=== PATIENT | female | born 1950 ===

== ENCOUNTER 2016-05-26 06:02 | Inpatient (IN) | payer MEDICARE ==
[2016-05-26] VITALS (12 sets, daily range): BP systolic 101–140; BP diastolic 45–83
[~2016-05-26] VITALS: Ht 142.2 cm; Wt 69.9 kg
[~2016-05-26 06:02] MED LIST: OMEPRAZOLE20 M2 ORAL; SIMVASTATIN20 MG ORAL
--- NOTE | 2016-05-26 06:31 | Pre-Procedure Note/Attestation ---
Pre-Procedure Note/Attestation Complete Prior to Procedure Planned Procedure: right Procedure Narrative: Right knee arthroplasty Indications for Procedure Pre-Operative Diagnosis: Right knee arthritis Attestation I attest that I discussed the nature of the procedure; its benefits; risks and complications; and alternatives (and the risks and benefits of such alternatives ), prior to the procedure, with the patient (or the patient's legal lead customer service representative). I attest that, if there was a reasonable possibility of needing a blood transfusion, the patient (or the patient's legal lead customer service representative) was given the [facility] standardized written summary, pursuant to the José Miguel Waka Blood Safety Act ([place] Health and Safety Code # 1645, as amended). I attest that I re-evaluated the patient just prior to the surgery and that there has been no change in the patient's H&P, except as documented below: FERMÍN HILLMAN May 26, 2016 06:31
[2016-05-26] MEDS ORDERED: Morphine Sulfate PF 10 ML ONE (06:32)
[2016-05-26] MEDS ORDERED: Ketorolac 60mg Inj ONE (06:32)
[2016-05-26] MEDS ORDERED: Bupivacaine 0.5% Inj 30 ml vial INJ ONE (06:33)
[2016-05-26] MEDS ORDERED: Ropivacaine 5mg/ml Vial 20ml INJ ONE (06:33)
[2016-05-26] MEDS ORDERED: Bupivacaine w/Epi 0.25% 30ml Vial INJ ONE (06:33)
[2016-05-26] MEDS ORDERED: Dexamethasone 4mg/ml vial ONE (06:33)
[2016-05-26] MEDS ORDERED: Bacitracin 50000 Units Vial ONE (06:33)
[2016-05-26] MEDS ORDERED: Morphine Sulfate 2mg/ml Inj IVP PRN (06:45)
[2016-05-26] MEDS ORDERED: Norco 7.5mg/325mg tab ORAL PRN ×2 (06:45→08:00)
[2016-05-26] MEDS ORDERED: HYDROmorphone 1mg/ml Carpuject SUBQ PRN (06:45)
--- NOTE | 2016-05-26 07:48 | Anethesia Preoperative Eval ---
Anesthesia Pre-op PMH/ROS General Date of Evaluation: May 26, 2016 Time of Evaluation: 06:46 ASA Score: ASA 3 Mallampati Score Class I : Soft palate, uvula, fauces, pillars visible Class II: Soft palate, uvula, fauces visible Class III: Soft palate, base of uvula visible Class IV: Only hard plate visible Mallampati Classification: Class III Surgeon: Jame Diagnosis: R Knee Pain Surgical Procedure: R Total Knee Arthroplasty Anesthesia History: none Family History: no anesthesia problems Allergies: Coded Allergies: No Known Allergies (Unverified , 05/25/16) Medications: see eMAR Past Medical History Cardiovascular: Reports: other - HL Gastrointestinal/Genitourinary: Reports: GERD Hematology/Immune: Reports: anemia Musculoskeletal/Integumentary: Reports: other - Arthritis Bilateral Knees Other: obesity - BMI 35 PSxH Narrative: KATE Anesthesia Pre-op Phys. Exam Physician Exam Last Vital Signs Date Time Temp Pulse Resp B/P Pulse Ox O2 Delivery O2 Flow Rate FiO2 05/26/16 06:19 97.2 89 20 133/83 99 Room Air Constitutional: NAD Neurologic: CN 2-12 intact Cardiovascular: RRR Respiratory: CTA Gastrointestinal: S/NT/ND Airway Exam Mallampati Score: Class III MO: limited ROM: limited Teeth: intact Anesthesia Pre-op A/P Risk Assessment & Plan Assessment: ASA 3 Plan: GA, BIS, Spinal, USGB-R Adductor Status Change Before Surgery: No Pre-Antibiotics Dru Grams Ancef IV Given Within 1 Hr of Incision: Yes Time Given: 07:26 Mateo Golden MD May 26, 2016 07:48
[2016-05-26] MEDS ORDERED: LR 1000ml 1,000 ML IVLG SCH (07:50)
--- NOTE | 2016-05-26 07:50 | Immediate Post-Op Evaluation ---
Immediate Post-Op Evalulation Immediate Post-Op Evalulation Procedure: R TKR Date of Evaluation: May 26, 2016 Time of Evaluation: 09:22 IV Fluids: 1500 LR Blood Products: 0 Estimated Blood Loss: 35 Urinary Output: 300 Blood Pressure Systolic: 119 Blood Pressure Diastolic: 45 Pulse Rate: 98 Respiratory Rate: 16 O2 Sat by Pulse Oximetry: 100 Temperature (Fahrenheit): 98.6 Pain Score (1-10): 0 Nausea: No Vomiting: No Complications 0 Patient Status: awake, reacts, patent, none Hydration Status: adequate Dru Grams Ancef IV Given Within 1 Hr of Incision: Yes Time Given: 07:26 Mateo Golden MD May 26, 2016 07:50
[2016-05-26] MEDS ORDERED: Atropine Inj 1mg/10ml Syr IV PRN (08:00)
[2016-05-26] MEDS ORDERED: Oxycodone/Acetaminophen 5-325 ORAL PRN (08:00)
[2016-05-26] MEDS ORDERED: Hydromorphone 0.5mg/0.5ml inj IVP PRN (08:00)
[2016-05-26] MEDS ORDERED: Midazolam 2mg/2ml Inj IVP PRN (08:00)
[2016-05-26] MEDS ORDERED: Ketorolac 30mg Inj IV PRN (08:00)
[2016-05-26] MEDS ORDERED: Norco 5mg/325mg tab ORAL PRN (08:00)
[2016-05-26] MEDS ORDERED: Ketorolac 60mg Inj IV PRN (08:00)
[2016-05-26] MEDS ORDERED: Meperidine 25mg/ml Inj IV PRN (08:00)
[2016-05-26] MEDS ORDERED: fentaNYL 100 mcg/2 mL IV PRN (08:00)
[2016-05-26] MEDS ORDERED: LORazepam Inj 2mg/ml 1ml IV PRN (08:00)
[2016-05-26] MEDS ORDERED: DiphenhydrAMINE 50mg/ml Inj IVP PRN (08:00)
[2016-05-26] MEDS ORDERED: Labetalol 5mg/ml 20ml vial IV PRN (08:00)
[2016-05-26] MEDS ORDERED: Metoclopramide 10mg/2ml Inj IVP PRN (08:00)
[2016-05-26] MEDS ORDERED: celeBREX 200mg Cap **SURGERY PATIENTS ONLY ORAL SCH (09:00)
[2016-05-26] MEDS ORDERED: Docusate 100mg cap ORAL SCH (09:00)
[2016-05-26] MEDS: oxyCONTIN 20mg tab ORAL SCH ×3 (09:00→21:00)
--- NOTE | 2016-05-26 09:24 | Brief Operative Note ---
Immediate Post Operative Note Operative Note Pre-op Diagnosis: Right knee arthritis Procedure: Right knee arthroplasty Post-op Diagnosis: same as pre-op Findings: consistent w/pre-op dx studies Surgeon: Jame Anesthesiologist: [place] Anesthesia: general, regional, local Specimen: yes Complications: none Condition: stable Estimated Blood Loss: minimal Drains: none Tourniquet time: 64 Implant(s) used?: Yes FERMÍN HILLMAN May 26, 2016 09:24
[2016-05-26] MEDS ORDERED: Midazolam 2mg/2ml Inj ONE (10:29)
--- NOTE | 2016-05-26 10:57 | Operative Note - Dictated ---
DATE OF SERVICE: 05/26/2016 SURGEON: Pepito Kilgore M.D. RN CIRCULATING: None . ANESTHESIA: Regional plus general plus local. COMPLICATIONS: None. ANTIBIOTICS: Ancef. PREOPERATIVE DIAGNOSIS: Right knee arthritis. POSTOPERATIVE DIAGNOSIS: Right knee arthritis. PROCEDURE PERFORMED: Right total knee arthroplasty using a cemented Nilson persona cruciate retaining narrow size 8 femur, a cemented 5-degree stemmed Nilson persona size D tibia, and all-polyethylene 29 x 8 mm cemented patella, and a 14 mm ultra congruent fixed bearing articular surface. Tourniquet time 64 minutes BACKGROUND HISTORY: Ms. Harrison has longstanding right knee pain refractory to nonoperative management. All risks, benefits, and alternatives to surgical intervention were discussed in great detail. Risks included, but not limited to, bleeding, infection, neurovascular injury, need for additional surgical intervention, failure of pain relief, arthrofibrosis, complications of anesthesia, blood clots, stroke, heart attack, and potentially . She understood these risks, amongst others, and consent was signed. PROCEDURE IN DETAIL: Ms. Harrison was brought into the operating room and placed supine on the operating table. The right knee was correctly verified for surgical site and prepped and draped in standard sterile fashion. Dr. Golden performed regional anesthetic. General anesthesia was induced. Two grams of Ancef were administered. The tourniquet was insufflated to 275 mmHg above atmospheric pressure for a period of 64 minutes after Esmarch exsanguination of the limb. A midline incision was created and a medial parapatellar arthrotomy was performed. The infrapatellar and suprapatellar fat pads were resected. The remnant menisci were removed. There was eburnated bone medially and in the patellofemoral articulation. An intramedullary guide was used in the femur and a distal 5-degree valgus cut was created. It sized to 8 without notching on all 5 cuts were created. Attention was turned to the tibia. Using extramedullary guidance as well as preoperative templating, the proximal tibia was resected. A gap check revealed symmetric flexion and extension gaps after soft tissue balancing. The patella was everted and resected of 8 mm of bone. It measured 29 mm. Trial reduction using a 29 mm patella, 8 femur, and D tibia with a 14 mm insert revealed extension to 0 degrees, no significant medial or lateral laxity, excellent patellar thumbs off tracking, and flexion to 140 degrees, limited by body habitus. Drill holes were created in the femur to accept the real implant and the tibia was prepped using a [employer] drill and keel punch. The bone ends were thoroughly cleansed using pulsatile lavage and then dried. All the components were cemented into position and final range of motion, patellar tracking, and stability were unchanged when compared to the trial. Copious irrigation was utilized throughout the wound and finger sweep revealed no retained foreign body or debris. The surrounding tissues were injected with 60 mL 0.25% Marcaine with epinephrine mixed with Decadron and Toradol. The extensor mechanism was reapproximated using #1 Vicryl and more superficial tissues with 0 and 2-0 Vicryl. The skin was reapproximated using Monocryl subcuticular fashion. Steri-Strips were used over Mastisol. Dry sterile dressing was applied. A compressive stocking was fitted. There were no complications. I attest that I performed the entire operation. She was transferred to recovery in good condition. Pepito Kilgore M.D. DR: Edie JOB#: [id number] CC: DAHLIA
[2016-05-26] MEDS: D5 1/2NS 1,000 ML IV SCH (11:33)
[2016-05-26] MEDS: Docusate 100mg cap ORAL SCH ×2 (13:00→17:43)
[2016-05-26] MEDS ORDERED: D5 1/2NS 1000ml IV ONE (22:33)
[2016-05-26] MEDS ORDERED: Tubing IV Secondary IV ONE (22:33)
[2016-05-27] VITALS: BP 110/68
[2016-05-27] MEDS: D5 1/2NS 1,000 ML IV SCH ×3 (00:59→20:10)
--- NOTE | 2016-05-27 07:34 | Orthopedic Progress Note ---
Orthopedic - Progress Note Subjective Symptoms: c/o post-op knee pain Objective Vital Signs Last 24 Hour Vital Signs Date Time Temp Pulse Resp B/P Pulse Ox O2 Delivery O2 Flow Rate FiO2 05/27/16 00:00 96.6 89 19 110/68 99 Nasal Cannula 3.0 05/26/16 20:24 98.1 87 19 111/66 99 Nasal Cannula 3.0 05/26/16 15:49 97.6 90 18 101/61 98 Nasal Cannula 3.0 05/26/16 15:48 97.6 90 05/26/16 11:30 96.7 90 16 103/66 98 Nasal Cannula 3.0 05/26/16 10:30 97.9 90 16 111/70 97 Nasal Cannula 3.0 05/26/16 10:20 98.8 89 13 115/65 98 Nasal Cannula 3.0 05/26/16 10:05 89 14 109/68 97 Nasal Cannula 3.0 05/26/16 09:50 89 14 118/67 97 Nasal Cannula 3.0 05/26/16 09:35 91 12 140/83 98 Nasal Cannula 3.0 05/26/16 09:20 90 13 121/68 98 Nasal Cannula 3.0 05/26/16 09:15 91 16 120/69 98 Simple Mask 6.0 05/26/16 09:12 98 16 100 05/26/16 09:11 98.6 96 34 119/45 99 Simple Mask 6.0 I&O Intake and Output 05/26/16 05/27/16 19:00 07:00 Intake Total 1862.5 ml 590 ml Output Total 610 ml 650 ml Balance 1252.5 ml -60 ml Intake Oral 590 ml IV Total 1862.5 ml Output Urine Total 575 ml 650 ml Estimated Blood Loss 35 ml Wound: clean Drains: none Neuro Status: normal Vascular Status: normal Additional Comments Mild soreness POD 1 right TKA Assessment Procedure Performed Right knee arthroplasty Additional Comments Post op x-rays show Right TKA in good position with no evidence of complication. Plan Plan: PT, pain management, discharge plan Additional Comments Plan SNF/Rehab when able Doing well POD 1 right TKA FERMÍN HILLMAN May 27, 2016 07:34
[2016-05-27 07:48] VITALS: BP 106/65
[2016-05-27] MEDS: celeBREX 200mg Cap **SURGERY PATIENTS ONLY ORAL SCH (08:50)
[2016-05-27] MEDS: Docusate 100mg cap ORAL SCH ×3 (08:50→17:17)
[2016-05-27] MEDS: oxyCONTIN 20mg tab ORAL SCH ×2 (08:52→20:10)
--- NOTE | 2016-05-27 08:54 | Consultation ---
Consult Note Assessment/Plan Int Med Consult dict doing well post op desires dc to SNF; please try [facility] thanks, EDER FLORES May 27, 2016 08:54
[2016-05-27] MEDS: Enoxaparin 40mg Inj SUBQ SCH (09:09)
--- NOTE | 2016-05-27 10:08 | Consultation ---
DATE OF CONSULTATION: 05/27/2016 INTERNAL MEDICINE CONSULTATION: CONSULTING PHYSICIAN: Pepito Kilgore M.D. CHIEF COMPLAINT: Knee arthritis. HISTORY OF PRESENT ILLNESS: The patient was admitted yesterday for elective right total knee arthroplasty for severe arthritis. She failed the previous injections. She has pain in the other knee as well and may require future surgery on the left side. The patient states she is feeling well except for postoperative pain. PAST MEDICAL HISTORY: Anemia in 2002 found associated with gastric ulcer. This was positive for H. pylori and she was treated with the triple therapy. She has hyperlipidemia, diverticulosis, degenerative disc disease, cataracts, obesity, osteoporosis, and had a prior hysterectomy. ALLERGIES: None. MEDICATIONS: Tylenol, calcium, omeprazole, and Zocor. ALLERGIES: None. SOCIAL HISTORY: She does not drink, smoke, or use any illicit drugs. She lives with her family. REVIEW OF SYSTEMS: Otherwise unremarkable. She does not have any chest pain or cardiac disorder. She has no hypertension or diabetes. She has no history of cancer. Mammograms have been satisfactory. PHYSICAL EXAMINATION: GENERAL: The patient is alert and responds appropriately. VITAL SIGNS: Normal. She is somewhat overweight, but does not appear to be obese. SKIN: Warm and dry. HEENT: The head is normocephalic. NECK: No jugular venous distention. CHEST: Clear. CARDIAC: Rhythm is regular. ABDOMEN: Soft and nontender. Liver and spleen are not enlarged. EXTREMITIES: No clubbing, cyanosis, or edema. She has immobilizer on the right leg and sequential compression device on the left leg. ASSESSMENT: 1. Postoperative status for right total knee arthroplasty. 2. Osteoarthritis. 3. Hyperlipidemia. 4. Degenerative disk disease. 5. History of gastric ulcer. PLAN: The patient's medications were reviewed with the nurse following surgery and will be continued. I will be happy to my follow her in the hospital until discharge. She request and will discharge to a care home facility for rehabilitation. Salomon Loredo M.D. DR: TRISTAN JOB#: [id number] CC: Pepito Kilgore M.D. ([facility] [place]); Fax#: [phone]
[2016-05-27 12:00] VITALS: BP 110/65
[2016-05-27] MEDS: Norco 5mg/325mg tab ORAL PRN ×3 (12:22→21:21)
[2016-05-27 16:00] VITALS: BP 133/73
[2016-05-27] MEDS ORDERED: D5 1/2NS 1000ml IV ONE (18:22)
[2016-05-27 20:00] VITALS: BP 122/76
[2016-05-27] MEDS ORDERED: DiphenhydrAMINE 50mg/ml Inj IVP PRN (21:45)
[2016-05-28] VITALS (7 sets, daily range): BP systolic 86–126; BP diastolic 56–96
[2016-05-28 06:51] LABS: MEAN CORPUSCULAR HEMOGLOBIN 28.4 PG (27.0-31.0); MEAN CORPUSCULAR HGB CONC 31.8 G/DL (32.0-36.0); MEAN CORPUSCULAR VOLUME 89 FL (80-99); MEAN PLATELET VOLUME 7.1 FL (6.5-10.1); PLATELET COUNT 163 K/UL (150-450); RED BLOOD COUNT 3.67 M/UL (4.20-5.40); RED CELL DISTRIBUTION WIDTH 12.5 % (11.6-14.8); WHITE BLOOD COUNT 11.7 K/UL (4.8-10.8)
[2016-05-28 07:07] LABS: ALANINE AMINOTRANSFERASE 8 U/L (3-33); ANION GAP 9 (5-15); ASPARTATE AMINO TRANSFERASE 15 U/L (5-40); CALCIUM 8.4 mg/dL (8.6-10.2); CARBON DIOXIDE 26 mEQ/L (20-30); CHLORIDE 104 mEQ/L (98-107); CREATININE 0.6 mg/dL (0.5-0.9); GLOMERULAR FILTRATION RATE > 60 mL/min (>60); HEMOLYSIS 0; POTASSIUM 3.6 mEQ/L (3.4-4.9); SODIUM 139 mEQ/L (135-145)
[2016-05-28] MEDS: Norco 5mg/325mg tab ORAL PRN (08:04)
[2016-05-28] MEDS: D5 1/2NS 1,000 ML IV SCH ×2 (08:09→17:11)
[2016-05-28] MEDS: Docusate 100mg cap ORAL SCH ×3 (09:00→17:11)
[2016-05-28] MEDS: oxyCONTIN 20mg tab ORAL SCH ×2 (09:19→20:46)
[2016-05-28] MEDS: celeBREX 200mg Cap **SURGERY PATIENTS ONLY ORAL SCH (09:19)
[2016-05-28] MEDS: Enoxaparin 40mg Inj SUBQ SCH (09:26)
[2016-05-28 09:41] LABS: BAND NEUTROPHILS % (MANUAL) 11 % (0-8); BASOPHILS % (MANUAL) 0 % (0-2); EOSINOPHILS % (MANUAL) 0 % (0-3); HYPOCHROMASIA 1+; LYMPHOCYTES % (MANUAL) 13 % (20-45); NEUTROPHILS % (MANUAL) 72 % (45-75); PLATELET ESTIMATE ADEQUATE; PLATELET MORPHOLOGY NORMAL; TOTAL CELLS COUNTED 100
--- NOTE | 2016-05-28 20:26 | Pulmonology Progress Note ---
Assessment/Plan Assessment/Plan ASSESSMENT: 1. Postoperative status for right total knee arthroplasty. 2. Osteoarthritis. 3. Hyperlipidemia. 4. Degenerative disk disease. 5. History of gastric ulcer. PLAN: doing well dct prophylaxis is wound care and pain control pt hold stool softeners check ra sat hep lock ivf dc planning cm consulted, to rehab monday Subjective ROS Limited/Unobtainable: Yes Constitutional: Reports: no symptoms HEENT: Repors: no symptoms Cardiovascular: Reports: no symptoms Gastrointestinal/Abdominal: Reports: diarrhea Genitourinary: Reports: no symptoms Neurologic: Reports: no symptoms Psychiatric: Reports: no symptoms Endocrine: Reports: no symptoms Hematologic: Reports: no symptoms Musculoskeletal: Reports: pain Allergies: Coded Allergies: No Known Allergies (Unverified , 05/25/16) Subjective doing well post op pain fairly well controlled no bleeding no cp nv or fever oob with pt diarrhea noted Objective Last 24 Hour Vital Signs Date Time Temp Pulse Resp B/P Pulse Ox O2 Delivery O2 Flow Rate FiO2 05/28/16 16:00 98.1 96 20 113/60 95 Room Air 05/28/16 13:00 102 105/61 05/28/16 13:00 103 110/72 05/28/16 12:00 98.9 107 18 86/96 96 Room Air 05/28/16 10:18 99.1 05/28/16 09:03 99.1 05/28/16 08:00 98.4 108 18 118/70 98 Room Air 05/28/16 04:30 99.1 104 18 97/56 97 Room Air 05/28/16 00:00 97.9 93 18 110/69 95 Room Air Intake and Output 05/27/16 05/28/16 19:00 07:00 Intake Total 1385 ml 1100 ml Output Total 400 ml 450 ml Balance 985 ml 650 ml Intake Oral 560 ml 200 ml IV Total 825 ml 900 ml Output Urine Total 400 ml 450 ml General Appearance: WD/WN Respiratory/Chest: lungs clear Cardiovascular: normal rate Abdomen: soft, non tender Skin: no rash Laboratory Tests 05/28/16 06:00: White Blood Count 11.7H, Red Blood Count 3.67L, Hemoglobin 10.4L, Hematocrit 32.8L, Mean Corpuscular Volume 89, Mean Corpuscular Hemoglobin 28.4, Mean Corpuscular Hemoglobin Concent 31.8L, Red Cell Distribution Width 12.5, Platelet Count 163, Mean Platelet Volume 7.1, Neutrophils (%) (Auto) , Lymphocytes (%) (Auto) , Monocytes (%) (Auto) , Eosinophils (%) (Auto) , Basophils (%) (Auto) , Differential Total Cells Counted 100, Neutrophils % ( Manual) 72, Lymphocytes % (Manual) 13L, Monocytes % (Manual) 4, Eosinophils % ( Manual) 0, Basophils % (Manual) 0, Band Neutrophils 11H, Platelet Estimate Adequate, Platelet Morphology Normal, Hypochromasia 1+, Sodium Level 139, Potassium Level 3.6, Chloride Level 104, Carbon Dioxide Level 26, Anion Gap 9, Blood Urea Nitrogen 16, Creatinine 0.6, Estimat Glomerular Filtration Rate > 60 , Glucose Level 117H, Calcium Level 8.4L, Total Bilirubin 0.4, Aspartate Amino Transf (AST/SGOT) 15, Alanine Aminotransferase (ALT/SGPT) 8, Alkaline Phosphatase 67, Total Protein 6.0L, Albumin 3.0L, Globulin 3.0, Albumin/ Globulin Ratio 1.0 Current Medications Medications (Trade) Dose Ordered Sig/Mando Route PRN Reason Start Time Stop Time Status Last Admin Dose Admin Acetaminophen/ Hydrocodone Bitart ([place] 5/325) 2 tab Q4H PRN ORAL pain scores 4-10 05/26/16 06:45 06/02/16 06:44 05/28/16 08:04 Acetaminophen/ Hydrocodone Bitart ([place] 7.5/325) 1 ea Q4H PRN ORAL Mild Pain (Pain Scale 1-3) 05/26/16 06:45 06/02/16 06:44 Celecoxib (CeleBREX) 200 mg DAILY ORAL 05/27/16 09:00 06/26/16 08:59 05/28/16 09:19 Dextrose/Sodium Chloride (D5 0.45% NS) 1,000 ml @ 75 mls/hr [id number] IV 05/26/16 11:30 06/25/16 11:29 05/28/16 17:11 Diphenhydramine HCl (Benadryl) 25 mg Q4H PRN IVP Itching 05/27/16 21:45 06/26/16 21:44 05/27/16 21:55 Docusate Sodium (Colace) 100 mg THREE TIMES A DAY ORAL 05/26/16 13:00 06/25/16 12:59 05/27/16 17:17 Enoxaparin Sodium (Lovenox) 40 mg DAILY SUBQ 05/27/16 09:00 06/26/16 08:59 05/28/16 09:26 Hydromorphone HCl (Dilaudid) 1 mg Q4H PRN SUBQ Mild Pain (Pain Scale 1-3) 05/26/16 06:45 06/02/16 06:44 05/27/16 04:23 Hydromorphone HCl (Dilaudid) 2 mg Q3H PRN SUBQ Severe Pain (Pain Scale 7-10) 05/26/16 06:45 06/02/16 06:44 05/26/16 23:48 Hydromorphone HCl (Dilaudid) 2 mg Q4H PRN SUBQ Moderate Pain (Pain Scale 4-6) 05/26/16 06:45 06/02/16 06:44 Morphine Sulfate (Morphine Sulfate) 2 mg Q4H PRN IVP Moderate Pain (Pain Scale 4-6) 05/26/16 06:45 06/02/16 06:44 Ondansetron HCl (Zofran) 4 mg EVERY 6 HOURS PRN IVP Nausea & Vomiting 05/26/16 06:45 06/25/16 06:44 05/26/16 17:43 Oxycodone HCl (OxyCONTIN) 20 mg EVERY 12 HOURS ORAL 05/26/16 09:00 06/02/16 08:59 05/28/16 09:19 Temazepam 7.5 mg 7.5 mg HSPRN PRN ORAL Insomnia 05/26/16 06:45 06/02/16 06:44 FRED DALAL DO May 28, 2016 20:26
[2016-05-29] VITALS: BP 120/62
[2016-05-29 04:00] VITALS: BP 95/55
[2016-05-29] MEDS: Norco 5mg/325mg tab ORAL PRN ×3 (05:34→19:35)
[2016-05-29] MEDS: D5 1/2NS 1,000 ML IV SCH (05:43)
[2016-05-29 07:53] VITALS: BP 115/67
[2016-05-29] MEDS: Enoxaparin 40mg Inj SUBQ SCH (08:39)
[2016-05-29] MEDS: Docusate 100mg cap ORAL SCH ×3 (08:45→16:38)
[2016-05-29] MEDS: celeBREX 200mg Cap **SURGERY PATIENTS ONLY ORAL SCH (08:45)
[2016-05-29] MEDS: oxyCONTIN 20mg tab ORAL SCH ×2 (08:45→21:36)
--- NOTE | 2016-05-29 10:33 | Diagnostic Imaging Report ---
Indications: Right knee arthroplasty Technique: Portable intraoperative AP and lateral views of the right knee Findings: Comparison: None Temporary femoral and tibial prosthetic components appear well seated and in anatomic alignment. No abnormal surrounding lucency is present. Overlying soft tissues are swollen with gas bubbles. . IMPRESSION: Intraoperative changes as described.
--- NOTE | 2016-05-29 10:33 | Diagnostic Imaging Report ---
Indications: Status post right knee arthroplasty Technique: Portable postoperative AP and lateral views of the of the right knee at 0955 Findings: Comparison: Intraoperative imaging of the right knee at airway 00 Right patellar, femoral, tibial prosthetic components appear well seated and in anatomic alignment. No abnormal surrounding lucency is present. Overlying soft tissues are swollen with gas bubbles. . IMPRESSION: Status post right knee arthroplasty.
[2016-05-29 12:00] VITALS: BP 130/74
[2016-05-29 15:50] VITALS: BP 133/66
[2016-05-29] MEDS ORDERED: D5 1/2NS 1000ml IV ONE (16:54)
[2016-05-29 20:22] VITALS: BP 115/76
--- NOTE | 2016-05-29 22:29 | Pulmonology Progress Note ---
Assessment/Plan Assessment/Plan ASSESSMENT: 1. Postoperative status for right total knee arthroplasty. 2. Osteoarthritis. 3. Hyperlipidemia. 4. Degenerative disk disease. 5. History of gastric ulcer. PLAN: doing well dct prophylaxis is wound care and pain control pt hold stool softeners check ra sat hep lock ivf dc planning cm consulted, to rehab monday Subjective ROS Limited/Unobtainable: Yes Constitutional: Reports: no symptoms HEENT: Repors: no symptoms Respiratory: Reports: no symptoms Allergies: Coded Allergies: No Known Allergies (Unverified , 05/25/16) Subjective doing well post op pain fairly well controlled no bleeding no cp nv or fever oob with pt diarrhea noted Objective Last 24 Hour Vital Signs Date Time Temp Pulse Resp B/P Pulse Ox O2 Delivery O2 Flow Rate FiO2 05/29/16 20:43 98.1 05/29/16 20:22 98.1 94 19 115/76 98 Room Air 05/29/16 15:50 98.6 95 18 133/66 99 Room Air 05/29/16 12:00 98.1 63 18 130/74 100 Room Air 05/29/16 07:53 98.1 93 18 115/67 98 Room Air 05/29/16 04:00 98.2 70 18 95/55 96 Room Air 05/29/16 00:00 97.3 99 16 120/62 99 Room Air Intake and Output 05/28/16 05/29/16 19:00 07:00 Intake Total 1575 ml 1365 ml Output Total 350 ml Balance 1225 ml 1365 ml Intake Oral 750 ml 540 ml IV Total 825 ml 825 ml Output Urine Total 350 ml # Voids 1 2 # Bowel Movements 3 1 General Appearance: WD/WN HEENT: anicteric Respiratory/Chest: lungs clear Cardiovascular: normal rate, regular rhythm Abdomen: soft, non tender Extremities: no clubbing Skin: no rash Neurologic/Psychiatric: computer designer II-XII grossly normal, no motor/sensory deficits, oriented x 3 Lymphatic: no neck adenopathy Musculoskeletal: normal muscle bulk Current Medications Medications (Trade) Dose Ordered Sig/Mando Route PRN Reason Start Time Stop Time Status Last Admin Dose Admin Acetaminophen/ Hydrocodone Bitart ([place] 5/325) 2 tab Q4H PRN ORAL pain scores 4-10 05/26/16 06:45 06/02/16 06:44 05/29/16 19:35 Acetaminophen/ Hydrocodone Bitart ([place] 7.5/325) 1 ea Q4H PRN ORAL Mild Pain (Pain Scale 1-3) 05/26/16 06:45 06/02/16 06:44 Celecoxib (CeleBREX) 200 mg DAILY ORAL 05/27/16 09:00 06/26/16 08:59 05/28/16 09:19 Diphenhydramine HCl (Benadryl) 25 mg Q4H PRN IVP Itching 05/27/16 21:45 06/26/16 21:44 05/27/16 21:55 Docusate Sodium (Colace) 100 mg THREE TIMES A DAY ORAL 05/26/16 13:00 06/25/16 12:59 05/27/16 17:17 Enoxaparin Sodium (Lovenox) 40 mg DAILY SUBQ 05/27/16 09:00 06/26/16 08:59 05/29/16 08:39 Hydromorphone HCl (Dilaudid) 1 mg Q4H PRN SUBQ Mild Pain (Pain Scale 1-3) 05/26/16 06:45 06/02/16 06:44 05/27/16 04:23 Hydromorphone HCl (Dilaudid) 2 mg Q3H PRN SUBQ Severe Pain (Pain Scale 7-10) 05/26/16 06:45 06/02/16 06:44 05/26/16 23:48 Hydromorphone HCl (Dilaudid) 2 mg Q4H PRN SUBQ Moderate Pain (Pain Scale 4-6) 05/26/16 06:45 06/02/16 06:44 Morphine Sulfate (Morphine Sulfate) 2 mg Q4H PRN IVP Moderate Pain (Pain Scale 4-6) 05/26/16 06:45 06/02/16 06:44 Ondansetron HCl (Zofran) 4 mg EVERY 6 HOURS PRN IVP Nausea & Vomiting 05/26/16 06:45 06/25/16 06:44 05/26/16 17:43 Oxycodone HCl (OxyCONTIN) 20 mg EVERY 12 HOURS ORAL 05/26/16 09:00 06/02/16 08:59 05/29/16 21:36 Temazepam (Restoril) 7.5 mg HSPRN PRN ORAL Insomnia 05/26/16 06:45 06/02/16 06:44 FRED DALAL DO May 29, 2016 22:29
[2016-05-30] VITALS: BP 99/68
[2016-05-30 04:25] VITALS: BP 125/67
[2016-05-30 08:12] VITALS: BP 124/76
--- NOTE | 2016-05-30 08:28 | Pulmonology Progress Note ---
Assessment/Plan Assessment/Plan 1. Postoperative status for right total knee arthroplasty. 2. Osteoarthritis. 3. Hyperlipidemia. 4. Degenerative disk disease. 5. History of gastric ulcer. PLAN: doing well dvt prophylaxis is wound care and pain control pt DC to SNF today Subjective Interval Events: No changes; no overnight events Constitutional: Reports: no symptoms HEENT: Repors: no symptoms Respiratory: Reports: no symptoms Gastrointestinal/Abdominal: Reports: no symptoms Genitourinary: Reports: no symptoms Allergies: Coded Allergies: No Known Allergies (Unverified , 05/25/16) Objective Last 24 Hour Vital Signs Date Time Temp Pulse Resp B/P Pulse Ox O2 Delivery O2 Flow Rate FiO2 05/30/16 08:12 97.9 105 18 124/76 98 Room Air 05/30/16 04:25 98.2 94 18 125/67 98 Room Air 05/30/16 00:00 97.7 99 18 99/68 100 Room Air 05/29/16 22:38 98.1 05/29/16 20:43 98.1 05/29/16 20:22 98.1 94 19 115/76 98 Room Air 05/29/16 15:50 98.6 95 18 133/66 99 Room Air 05/29/16 12:00 98.1 63 18 130/74 100 Room Air Intake and Output 05/29/16 05/30/16 19:00 07:00 Intake Total 610 ml 240 ml Balance 610 ml 240 ml Intake Oral 610 ml 240 ml # Voids 4 4 # Bowel Movements 1 General Appearance: no acute distress HEENT: normocephalic Respiratory/Chest: chest wall non-tender, lungs clear Cardiovascular: normal peripheral pulses, normal rate Abdomen: normal bowel sounds, soft, non tender Current Medications Medications (Trade) Dose Ordered Sig/Mando Route PRN Reason Start Time Stop Time Status Last Admin Dose Admin Acetaminophen/ Hydrocodone Bitart ([place] 5/325) 2 tab Q4H PRN ORAL pain scores 4-10 05/26/16 06:45 06/02/16 06:44 05/29/16 19:35 Acetaminophen/ Hydrocodone Bitart ([place] 7.5/325) 1 ea Q4H PRN ORAL Mild Pain (Pain Scale 1-3) 05/26/16 06:45 06/02/16 06:44 Celecoxib (CeleBREX) 200 mg DAILY ORAL 05/27/16 09:00 2/5/17 08:59 05/28/16 09:19 Diphenhydramine HCl (Benadryl) 25 mg Q4H PRN IVP Itching 05/27/16 21:45 06/26/16 21:44 05/27/16 21:55 Docusate Sodium (Colace) 100 mg THREE TIMES A DAY ORAL 05/26/16 13:00 06/25/16 12:59 05/27/16 17:17 Enoxaparin Sodium (Lovenox) 40 mg DAILY SUBQ 05/27/16 09:00 06/26/16 08:59 05/29/16 08:39 Hydromorphone HCl (Dilaudid) 1 mg Q4H PRN SUBQ Mild Pain (Pain Scale 1-3) 05/26/16 06:45 06/02/16 06:44 05/27/16 04:23 Hydromorphone HCl (Dilaudid) 2 mg Q3H PRN SUBQ Severe Pain (Pain Scale 7-10) 05/26/16 06:45 06/02/16 06:44 05/26/16 23:48 Hydromorphone HCl (Dilaudid) 2 mg Q4H PRN SUBQ Moderate Pain (Pain Scale 4-6) 05/26/16 06:45 06/02/16 06:44 Morphine Sulfate (Morphine Sulfate) 2 mg Q4H PRN IVP Moderate Pain (Pain Scale 4-6) 05/26/16 06:45 06/02/16 06:44 Ondansetron HCl (Zofran) 4 mg EVERY 6 HOURS PRN IVP Nausea & Vomiting 05/26/16 06:45 06/25/16 06:44 05/26/16 17:43 Oxycodone HCl (OxyCONTIN) 20 mg EVERY 12 HOURS ORAL 05/26/16 09:00 06/02/16 08:59 05/29/16 21:36 Temazepam (Restoril) 7.5 mg HSPRN PRN ORAL Insomnia 05/26/16 06:45 06/02/16 06:44 Arnol Argueta MD May 30, 2016 08:28
[2016-05-30] MEDS ORDERED: CELEBREX200 MG ORAL (08:31)
[2016-05-30] MEDS ORDERED: HYDROCODON-ACE1 EA16 ORAL (08:31)
[2016-05-30] MEDS ORDERED: RESTORIL7.5 MG ORAL (08:31)
[2016-05-30] MEDS ORDERED: LOVENOX10 M4 SUBQ (08:31)
[2016-05-30] MEDS ORDERED: OXYCONTIN20 MG ORAL (08:31)
[2016-05-30] MEDS: oxyCONTIN 20mg tab ORAL SCH (08:33)
[2016-05-30] MEDS: Docusate 100mg cap ORAL SCH (08:33)
[2016-05-30] MEDS: celeBREX 200mg Cap **SURGERY PATIENTS ONLY ORAL SCH (08:34)
[2016-05-30] MEDS: Enoxaparin 40mg Inj SUBQ SCH (08:38)
[2016-05-30 11:39] VITALS: BP 122/79
[2016-05-30 13:58] VITALS: BP 122/79
--- NOTE | 2016-05-30 13:58 | 48 Hour Post Anesthesia Eval ---
Post Anesthesia Evaluation Procedure: R TKR Date of Evaluation: May 30, 2016 Blood Pressure Systolic: 122 0: 79 Pulse Rate: 93 Respiratory Rate: 20 Temperature (Fahrenheit): 98.1 O2 Sat by Pulse Oximetry: 98 Airway: patent Nausea: No Vomiting: No Pain Intensity: 3 Hydration Status: adequate Cardiopulmonary Status: at baseline Mental Status/LOC: patient returned to baseline Post-Anesthesia Complications: 0 Follow-up care needed: N/A - further care as per primary team SAGRARIO INFANTE M.D. May 30, 2016 13:58
--- NOTE | 2016-05-31 12:50 | Discharge Instructions ---
Discharge Instructions Discharge Instructions Follow up with: MD at the faciltiy and ortho Call MD/Return to Hospital if: intractable pain, incision not healing, SOB, chest pain Services at Discharge: physical therapy, occupational therapy Diet: cardiac 2 GM Na, low fat Activity: as tolerated - fall precautions For Surgical Patients Contact your physician for: bleeding, pain, tenderness, redness, swelling, yellowish discharge in the op. site For Congestive Heart Failure Reminder Report to your physician any weight gain of 5 pounds or more in one week. Ezequiel ([facility]),Marialuisa GUTIERREZ May 31, 2016 12:50
--- NOTE | 2016-05-31 12:58 | Discharge Summary ---
Discharge Summary Hospital Course Date of Admission May 26, 2016 at 06:02 Date of Discharge May 30, 2016 at 12:30 Admitting Diagnosis R knee osteoarthritis Reason for Hospitalization: R knee osteoarthritis, admitted for elective surgery [facility] Alexia Harrison is a 65 year old female who was admitted on May 26, 2016 at 06: 02 for Right Knee Osteoarthritis Consultations dr Loredo - IM Procedures s/p 05/26 Right total knee arthroplasty dr Kilgore Hospital Course 65 y/od female with hx of R knee osteoarthritis admitted for elective surgery s/p R TKA 05/26 course of recovery uneventful pain management bowel regimen anticoagulation PT/OT fall precautions GI prophylaxis continue statin pain controlled, ambulates with PT, tolerates diet stable for dc to SNF, need 2 wks of Lovenox Discharge Medications New Medications: Celecoxib* (Celebrex*) 200 Mg Capsule 200 MG ORAL DAILY for 30 Days, CAP Enoxaparin* (Lovenox*) 40 Mg/0.4 Ml Inj 40 MG SUBQ DAILY for 14 Days, #14 % Hydrocodone/Acetaminophen 7.5-325* (Hydrocodon-Acetaminoph 7.5-325*) 1 Each Tablet 1 EA ORAL Q4H PRN for 14 Days, TAB Oxycodone Hcl Er* (Oxycontin*) 20 Mg Tab.er.12h 20 MG ORAL EVERY 12 HOURS for 14 Days, TAB Temazepam* (Restoril*) 7.5 Mg Capsule 7.5 MG ORAL HSPRN PRN for 14 Days, CAP Continued Medications: Omeprazole (Omeprazole) 20 Mg Capsule.dr 20 MG ORAL DAILY, CAP Simvastatin (Zocor) 20 Mg Tablet 20 MG ORAL BEDTIME, TAB Discharge Condition Upon Discharge: improving, stable Discharge Disposition Patient was discharged to SNF Discharge Diagnoses: (1) Osteoarthritis of right knee (2) S/P total knee arthroplasty (3) DDD (degenerative disc disease) (4) Hx of gastric ulcer (5) Hyperlipidemia Discharge Instructions Discharge Instructions Follow up with: MD at the faciltiy and ortho Call MD/Return to Hospital if: intractable pain, incision not healing, SOB, chest pain Services Upon Discharge: physical therapy, occupational therapy Activity: as tolerated - fall precautions Special Instructions I have been assigned to complete a D/C Summary on this account. I was not involved in the patient management For Surgical Patients Contact your physician for: bleeding, pain, tenderness, redness, swelling, yellowish discharge in the op. site Nieves ([facility]),Marialuisa GUTIERREZ May 31, 2016 12:58
--- NOTE | 2016-06-07 16:13 | Cardiology Report ---
APPROVED REPORT EKG Measurement Heart [id number] Suspect arm lead reversal, interpretation assumes no reversal Normal sinus rhythm Right ventricular hypertrophy Lateral infarct, age undetermined Possible Inferior infarct, age undetermined Abnormal ECG
--- NOTE | 2016-06-21 14:24 | Diagnostic Imaging Report ---
APPROVED REPORT CPT Code: 21095 Present Symptoms Lower Extremity Pain: Bilateral Comments: Post Surgery RT LEG Risk Factors Post OP BILATERAL: Imaging reveals a patent deep venous system bilaterally. There is no evidence of thrombus within the femoral, popliteal or tibial segments. The greater saphenous veins are also within normal limits. Doppler indicates normal spontaneous flow within these segments.
== END 2016-05-30 12:30 | DRG 470 ==
LOC: SDSOVERFLO 06:02 → 3E 10:32
PROC: 0SRC0J9 Replacement of Right Knee Joint with Synthetic Substitute, Cemented, Open Approach (ICD-10-PCS; principal; 2016-05-26 07:00)
DX: M17.11 Unilateral primary osteoarthritis, right knee (principal); E78.5 Hyperlipidemia, unspecified; E66.9 Obesity, unspecified; Z68.35 Body mass index [BMI] 35.0-35.9, adult; M81.0 Age-related osteoporosis without current pathological fracture
CPT/HCPCS: 36415; 80053; 85007; 85025; 86850; 86900; 86901; 87081; 93005; 93970; 94003; 94150; J2250; J2405

== ENCOUNTER 2016-11-29 06:04 | Inpatient (IN) | payer MEDICARE, OTHER ==
[2016-11-29] VITALS (15 sets, daily range): BP systolic 100–148; BP diastolic 52–82
[~2016-11-29] VITALS: Ht 149.9 cm; Wt 69.9 kg
[~2016-11-29 06:04] MED LIST changes: +CELEBREX200 MG ORAL; +HYDROCODON-ACE1 EA16 ORAL; +LOVENOX10 M4 SUBQ; +OXYCONTIN20 MG ORAL; +RESTORIL7.5 MG ORAL; +TYLENOL PO
--- NOTE | 2016-11-29 07:05 | Pre-Procedure Note/Attestation ---
Pre-Procedure Note/Attestation Complete Prior to Procedure Planned Procedure: left Procedure Narrative: Left knee arthroplasty Indications for Procedure Pre-Operative Diagnosis: Left knee arthritis Attestation I attest that I discussed the nature of the procedure; its benefits; risks and complications; and alternatives (and the risks and benefits of such alternatives ), prior to the procedure, with the patient (or the patient's legal community health representative). I attest that, if there was a reasonable possibility of needing a blood transfusion, the patient (or the patient's legal community health representative) was given the [facility] standardized written summary, pursuant to the José Miguel Glenny Blood Safety Act ([place] Health and Safety Code # 1645, as amended). I attest that I re-evaluated the patient just prior to the surgery and that there has been no change in the patient's H&P, except as documented below: FERMÍN HILLMAN Nov 29, 2016 07:05
[2016-11-29] MEDS ORDERED: Bacitracin 50000 Units Vial ONE (07:14)
[2016-11-29] MEDS ORDERED: Bupivacaine 0.5% Inj 30 ml vial INJ ONE (07:25)
[2016-11-29] MEDS ORDERED: Duramorph PF 5mg/10ml amp ONE (07:25)
[2016-11-29] MEDS ORDERED: Sterile Water Irrig 1000ml IRRIG ONE (07:30)
[2016-11-29] MEDS ORDERED: Midazolam 2mg/2ml Inj ONE (07:30)
[2016-11-29] MEDS ORDERED: Propofol 10mg/ml 100ml btl IV ONE (07:30)
[2016-11-29] MEDS ORDERED: fentaNYL 100 mcg/2 mL IV ONE (07:30)
[2016-11-29] MEDS ORDERED: LR 1000ml ONE (07:30)
[2016-11-29] MEDS: Dexamethasone 4mg/ml vial ONE ×2 (08:00→08:45)
[2016-11-29] MEDS: Ketorolac 60mg Inj ONE ×2 (08:00→08:45)
[2016-11-29] MEDS ORDERED: NS Irrig 1000ml IRRIG ONE (08:20)
[2016-11-29] MEDS ORDERED: Bupivacaine w/Epi 0.25% 30ml Vial INJ ONE (08:45)
[2016-11-29] MEDS ORDERED: LR 1000ml 1,000 ML IVLG SCH (08:49)
--- NOTE | 2016-11-29 08:56 | Anethesia Preoperative Eval ---
Anesthesia Pre-op PMH/ROS General Date of Evaluation: Nov 29, 2016 Time of Evaluation: 07:25 Anesthesiologist: Elizabeth Mallampati Score Class I : Soft palate, uvula, fauces, pillars visible Class II: Soft palate, uvula, fauces visible Class III: Soft palate, base of uvula visible Class IV: Only hard plate visible Mallampati Classification: Class II Surgeon: Jame Diagnosis: OA left knee Surgical Procedure: Left knee TKR Anesthesia History: PONV - Intractable Allergies: Coded Allergies: ACETAMINOPHEN (Verified Allergy, Severe, 11/28/16) NAUSEA AND VOMITING HYDROCODONE (Verified Allergy, Severe, 11/28/16) NAUSEA AND VOMITING Past Medical History Cardiovascular: Denies: CAD, HTN, CO, arrhythmia, other, valve dz Pulmonary: Denies: COPD, GEO, asthma, other Gastrointestinal/Genitourinary: Reports: GERD, other - Gastric ulcer Neurologic/Psychiatric: Denies: CVA, TIA, dementia, depression/anxiety, other Endocrine: Denies: DM, hypothyroidism, other, steroids HEENT: Denies: KASHIA (L), KASHIA (R), cataract (L), cataract (R), glaucoma, other Hematology/Immune: Denies: DVT, anemia, bleeding disorder, other Musculoskeletal/Integumentary: Reports: OA PMH Narrative: OA, bleeding ulcer, GERD PSxH Narrative: Right knee TKR Anesthesia Pre-op Phys. Exam Physician Exam Last Vital Signs Date Time Temp Pulse Resp B/P Pulse Ox O2 Delivery O2 Flow Rate FiO2 11/29/16 07:02 97.2 76 20 136/69 99 Room Air Constitutional: NAD Neurologic: CN 2-12 intact Cardiovascular: RRR, no M/R/G Respiratory: CTA Gastrointestinal: S/NT/ND Airway Exam Mallampati Score: Class II MO: full ROM: full Teeth: intact Anesthesia Pre-op A/P Labs WNL Studies Pre-op Studies: EKG - SR Risk Assessment & Plan Assessment: 66 yo female with h/o bleeding ulcer, OA and GERD here for left TKR Plan: Spinal with intrathecal morphine, femoral nerve block for post op pain (surgeon request) Status Change Before Surgery: No Pre-Antibiotics Drug: Ancef Given Within 1 Hr of Incision: Yes Time Given: 08:00 DAVID ALEXIS M.D. Nov 29, 2016 08:56
--- NOTE | 2016-11-29 08:57 | Immediate Post-Op Evaluation ---
Immediate Post-Op Evalulation Immediate Post-Op Evalulation Procedure: Left knee TKR Date of Evaluation: Nov 29, 2016 Time of Evaluation: 10:10 IV Fluids: 1700 Blood Pressure Systolic: 100 Blood Pressure Diastolic: 57 Pulse Rate: 62 Respiratory Rate: 18 O2 Sat by Pulse Oximetry: 100 Temperature (Fahrenheit): 97.8 Pain Score (1-10): 0 Nausea: No Vomiting: No Complications No complication Patient Status: awake, patent, none Hydration Status: adequate Drug: Ancef Given Within 1 Hr of Incision: Yes Time Given: 08:00 DAVID ALEXIS M.D. Nov 29, 2016 08:57
[2016-11-29] MEDS ORDERED: Enoxaparin 40mg Inj SUBQ SCH (09:00)
[2016-11-29] MEDS ORDERED: LR 1000ml 1,000 ML IV SCH (09:00)
[2016-11-29] MEDS ORDERED: Hydromorphone 0.5mg/0.5ml inj IVP PRN (09:00)
[2016-11-29] MEDS ORDERED: LORazepam Inj 2mg/ml 1ml IV PRN (09:00)
[2016-11-29] MEDS ORDERED: Meperidine 25mg/0.5ml Inj (FOR RIGORS ONLY) IV PRN (09:00)
--- NOTE | 2016-11-29 09:53 | Brief Operative Note ---
Immediate Post Operative Note Operative Note Pre-op Diagnosis: Left knee arthritis Procedure: Left knee arthroplasty Post-op Diagnosis: same as pre-op Findings: consistent w/pre-op dx studies Surgeon: Jame Anesthesiologist: Prabha Anesthesia: general, regional Specimen: yes Complications: none Condition: stable Estimated Blood Loss: minimal Drains: none Tourniquet time: 63 - min Implant(s) used?: Yes FERMÍN HILLMAN Nov 29, 2016 09:53
[2016-11-29] MEDS ORDERED: Dexamethasone 4mg/ml vial ONE (11:02)
[2016-11-29] MEDS ORDERED: Dexamethasone 4mg/ml vial IVP ONE ×2 (11:05→12:15)
--- NOTE | 2016-11-29 11:15 | Diagnostic Imaging Report ---
Indication: Pain Intraoperative imaging of the left knee performed during knee replacement surgery. The femoral component of the prosthesis is present. The tibial component in in the process of being placed. Impression: Intraoperative imaging
[2016-11-29] MEDS ORDERED: oxyCODONE 5mg IR tab ORAL PRN (12:00)
[2016-11-29] MEDS ORDERED: Norco 7.5mg/325mg tab ORAL PRN (12:00)
[2016-11-29] MEDS: D5 1/2NS w/KCl 20mEq 1,000 ML IV SCH (12:51)
[2016-11-29] MEDS: celeBREX 200mg Cap **SURGERY PATIENTS ONLY ORAL SCH (12:52)
[2016-11-29] MEDS ORDERED: Milk of Magnesia 30ml Ud ORAL PRN (13:00)
--- NOTE | 2016-11-29 13:01 | Operative Note - Dictated ---
please do not put [facility] in parenthesis. Take that out of my name on the signature. DATE: 11/29/2016 SURGEON: Pepito Kilgore M.D. SECURITY DIRECTOR: None. ANESTHESIA: General plus regional plus local. COMPLICATIONS: None. ANTIBIOTICS: Ancef. PREOPERATIVE DIAGNOSIS: Left knee arthritis. POSTOPERATIVE DIAGNOSIS: Left knee arthritis. PROCEDURE PERFORMED: Left total knee arthroplasty using Nilson persona cemented size 7 cruciate retaining narrow femur, Nilson persona cemented 5 degree stemmed left side size D tibia, 29 mm x 8 mm all polyethylene cemented patella, with an 18 mm ultracongruent fixed bearing articular surface. Tourniquet time 63 minutes. BACKGROUND: The patient has a longstanding left knee pain refractory to nonoperative management. All risks, benefits, and alternatives to surgical intervention were discussed in great detail. Risks included, but were not limited to, bleeding, infection, neurovascular injury, need for additional surgical intervention, failure of pain relief, arthrofibrosis, complications of anesthesia, blood clots, stroke, heart attack, and potentially . She understood these risks, amongst others, and consent was signed. PROCEDURE IN DETAIL: The patient was brought into the operating room, placed supine on the operating table. The left knee was correctly verified for surgical site and prepped and draped in standard sterile fashion. Examination revealed varus alignment. A midline incision was outlined and Esmarch bandage used to exsanguinate the limb. The tourniquet was insufflated to 275 mmHg above atmospheric pressure for a period of 63 minutes. The incision was created and a medial parapatellar arthrotomy was performed. There was extensive tricompartmental arthritis with [id number] contact medially. The infrapatellar and suprapatellar fat pads were resected. The remnant menisci were removed. Soft tissue balancing was undertaken and intramedullary guide was used in the femur to cut a 5 degree valgus distal bone cuts. All bone cuts were then created after sizing to a 7 to avoid notching. Attention was then turned to the tibia. Using extramedullary guidance in preoperative templating, the proximal tibia was resected of bone. The PCL was recessed after the ACL resected. A gap check revealed symmetric flexion and extension gaps. The patella was everted and resected of 8 mm bone. It measured to a size 29. Appropriate drill holes were created to accept the implant. Trial reduction using a 7 femur, D tibia, 18 mm insert, and 29 mm patellar revealed extension of 0 degrees, no medial or lateral laxity, excellent patellar thumbs off tracking, and flexion to 150 degrees limited by body habitus. Drill holes were then created in the femur to accept the real implant. The bone plug was used in the femoral canal to prevent postoperative bleeding. The tibia was prepared using a [employer] drill and keel punch. Pulsatile lavage was used. All the bone ends were cleaned and then thoroughly dried. The real components were cemented into position. There was no change in final range of motion, patellar tracking, or stability. Copious irrigation was utilized and finger sweep revealed no retained foreign body or debris. The surrounding tissues were injected with 40 mL 0.25% Marcaine with epinephrine mixed with Toradol and Decadron. The extensor mechanism was reapproximated using #1 Vicryl and more superficial tissues with 0 and 2-0 Vicryl. The Steri-Strips were used over Mastisol. Dry sterile dressing was applied. A compressive stocking was fitted. There were no complications. I attest that I performed the entire operation. She was then transferred to recovery in good condition. Pepito Kilgore M.D. ([facility]) DR: TANNER JOB#: [id number] CC:
--- NOTE | 2016-11-29 13:30 | Diagnostic Imaging Report ---
Indication: Pain 2 views of the left knee were obtained. Findings: Cemented total knee arthroplasty demonstrated. There is soft tissue air as expected given recent surgery. Alignment and position of the hardware is unremarkable. Impression: Status post total knee replacement
[2016-11-29] MEDS: ceFAZolin sod 2 GM in D5W 110 ML IV SCH ×2 (14:54→23:47)
[2016-11-29] MEDS: Docusate 100mg cap ORAL SCH (17:39)
[2016-11-30] VITALS: BP 100/75
[2016-11-30] MEDS: D5 1/2NS w/KCl 20mEq 1,000 ML IV SCH (02:54)
[2016-11-30 04:00] VITALS: BP 92/56
[2016-11-30 08:11] VITALS: BP 106/61
--- NOTE | 2016-11-30 08:39 | 48 Hour Post Anesthesia Eval ---
Post Anesthesia Evaluation Procedure: Left knee TKR Date of Evaluation: Nov 30, 2016 Time of Evaluation: 07:16 Blood Pressure Systolic: 106 0: 61 Pulse Rate: 87 Respiratory Rate: 20 Temperature (Fahrenheit): 96.3 O2 Sat by Pulse Oximetry: 98 Airway: patent Nausea: No Vomiting: No Pain Intensity: 3 Hydration Status: adequate Cardiopulmonary Status: Stable Mental Status/LOC: patient returned to baseline Follow-up Care/Observations: 0 Post-Anesthesia Complications: 0 Follow-up care needed: N/A Mateo Golden MD Nov 30, 2016 08:39
[2016-11-30] MEDS: celeBREX 200mg Cap **SURGERY PATIENTS ONLY ORAL SCH (08:43)
[2016-11-30] MEDS: Docusate 100mg cap ORAL SCH ×4 (08:43→16:58)
--- NOTE | 2016-11-30 08:43 | Consultation ---
Consult Note Assessment/Plan DATE OF CONSULTATION: 11/30/2016 INTERNAL MEDICINE CONSULTATION CONSULTING PHYSICIAN: Pepito Kilgore M.D. CHIEF COMPLAINT: Knee arthritis. HISTORY OF PRESENT ILLNESS: The patient was admitted yesterday for elective L total knee arthroplasty for severe arthritis. She had previous R TKA. The patient states she is feeling well except for postoperative pain and some emesis. PAST MEDICAL HISTORY: Anemia in 2002 found associated with gastric ulcer. This was positive for H. pylori and she was treated with the triple therapy. She has hyperlipidemia, diverticulosis, degenerative disc disease, cataracts, obesity, osteoporosis, and had a prior hysterectomy. ALLERGIES: None. MEDICATIONS: Tylenol, calcium, omeprazole, and Zocor. ALLERGIES: None. SOCIAL HISTORY: She does not drink, smoke, or use any illicit drugs. She lives with her family. REVIEW OF SYSTEMS: Otherwise unremarkable. She does not have any chest pain or cardiac disorder. She has no hypertension or diabetes. She has no history of cancer. Mammograms have been satisfactory. PHYSICAL EXAMINATION: GENERAL: The patient is alert and responds appropriately. VITAL SIGNS: Normal. She is somewhat overweight, but does not appear to be obese. SKIN: Warm and dry. HEENT: The head is normocephalic. NECK: No jugular venous distention. CHEST: Clear. CARDIAC: Rhythm is regular. ABDOMEN: Soft and nontender. Liver and spleen are not enlarged. EXTREMITIES: No clubbing, cyanosis, or edema. She has immobilizer on the L leg and sequential compression device on the R leg. ASSESSMENT: 1. Postoperative status for L total knee arthroplasty. 2. Osteoarthritis, s/p R TKA 3. Hyperlipidemia. 4. Degenerative disk disease. 5. History of gastric ulcer. PLAN: The patient's medications were reviewed and will be continued. I will be happy to follow her in the hospital until discharge. She may need discharge to a snf facility for rehabilitation. <Electronically signed by EDER PONCE > 05/31/16 2251 : EDER PONCE Nov 30, 2016 08:43
[2016-11-30 10:28] LABS: LYMPHOCYTES % (AUTO) 9.3 % (20.0-45.0); MEAN CORPUSCULAR HGB CONC 32.2 G/DL (32.0-36.0); MEAN CORPUSCULAR VOLUME 90 FL (80-99); MEAN PLATELET VOLUME 6.6 FL (6.5-10.1); MONOCYTES % (AUTO) 10.9 % (1.0-10.0); NEUTROPHILS % (AUTO) 79.8 % (45.0-75.0); PLATELET COUNT 191 K/UL (150-450); RED BLOOD COUNT 3.01 M/UL (4.20-5.40); RED CELL DISTRIBUTION WIDTH 12.5 % (11.6-14.8); WHITE BLOOD COUNT 10.3 K/UL (4.8-10.8)
[2016-11-30] MEDS: Enoxaparin 40mg Inj SUBQ SCH (10:33)
[2016-11-30 11:35] VITALS: BP 98/57
--- NOTE | 2016-11-30 12:16 | Orthopedic Progress Note ---
Orthopedic - Progress Note Subjective Symptoms: c/o post-op knee pain Additional Comments POD 1 right TKA Objective Vital Signs Last 24 Hour Vital Signs Date Time Temp Pulse Resp B/P Pulse Ox O2 Delivery O2 Flow Rate FiO2 11/30/16 11:35 97.7 78 20 98/57 96 Room Air 11/30/16 08:39 87 20 98 11/30/16 08:11 96.3 87 20 106/61 98 Nasal Cannula 3.0 11/30/16 04:00 96.8 90 20 92/56 99 Nasal Cannula 3.0 11/30/16 00:00 96.3 95 18 100/75 96 Nasal Cannula 3.0 11/29/16 20:00 96.6 91 19 120/79 97 Nasal Cannula 3.0 11/29/16 16:04 97.0 93 18 127/77 97 Nasal Cannula 3.0 11/29/16 14:30 98.0 80 20 133/77 99 Nasal Cannula 2.0 11/29/16 12:30 96.3 88 18 141/76 95 Room Air I&O Intake and Output 11/29/16 11/30/16 19:00 07:00 Intake Total 3018 ml 1140 ml Output Total 515 ml 800 ml Balance 2503 ml 340 ml Intake Oral 240 ml 240 ml IV Total 2778 ml 900 ml Output Urine Total 500 ml 800 ml Estimated Blood Loss 15 ml # Voids 1 Wound: clean, dry Drains: none Neuro Status: normal Vascular Status: normal Additional Comments In CPM with some residual nerve block effects. Assessment Procedure Performed Left knee arthroplasty Plan Plan: PT, pain management, discharge plan Additional Comments rehab planned for tomorrow Cont working with PT FERMÍN HILLMAN Nov 30, 2016 12:16
[2016-11-30] MEDS: oxyCODONE 5mg IR tab ORAL PRN ×2 (14:54→19:49)
[2016-11-30 15:53] VITALS: BP 100/56
[2016-11-30 20:00] VITALS: BP 125/59
[2016-12-01 02:02] VITALS: BP 137/75
[2016-12-01 04:00] VITALS: BP 134/73
[2016-12-01 08:00] VITALS: BP 128/79
[2016-12-01] MEDS: Enoxaparin 40mg Inj SUBQ SCH (08:14)
[2016-12-01] MEDS: Docusate 100mg cap ORAL SCH ×3 (08:15→18:00)
[2016-12-01] MEDS: celeBREX 200mg Cap **SURGERY PATIENTS ONLY ORAL SCH (08:16)
[2016-12-01] MEDS: oxyCODONE 5mg IR tab ORAL PRN ×3 (09:40→22:47)
[2016-12-01 11:54] VITALS: BP 120/67
--- NOTE | 2016-12-01 15:25 | Orthopedic Progress Note ---
Orthopedic - Progress Note Subjective Symptoms: c/o post-op knee pain Objective Vital Signs Last 24 Hour Vital Signs Date Time Temp Pulse Resp B/P Pulse Ox O2 Delivery O2 Flow Rate FiO2 12/01/16 11:54 98.2 92 20 120/67 97 Nasal Cannula 3.0 12/01/16 08:00 97.2 96 19 128/79 96 Nasal Cannula 3.0 12/01/16 04:00 97.5 93 18 134/73 100 Nasal Cannula 2.0 12/01/16 02:02 98.2 91 18 137/75 98 Nasal Cannula 2.0 11/30/16 20:00 98.8 93 18 125/59 97 Room Air 11/30/16 15:53 98.3 89 20 100/56 96 Room Air I&O Intake and Output 11/30/16 12/01/16 19:00 07:00 Intake Total 1220 ml 120 ml Output Total 1550 ml 400 ml Balance -330 ml -280 ml Intake Oral 1220 ml 120 ml Output Urine Total 1550 ml 400 ml # Voids 3 Wound: clean, dry Drains: none Neuro Status: normal Vascular Status: normal Assessment Procedure Performed Left knee arthroplasty Plan Plan: PT, pain management Additional Comments plan rehab when bed available continue working with PT FERMÍN HILLMAN Dec 01, 2016 15:25
[2016-12-01 16:00] VITALS: BP 127/71
--- NOTE | 2016-12-01 16:55 | General Progress Note ---
Assessment/Plan Status: progressing Assessment/Plan 1. Postoperative status for L total knee arthroplasty. 2. Osteoarthritis, s/p R TKA 3. Hyperlipidemia. 4. Degenerative disk disease. 5. History of gastric ulcer doing well no more emesis dc planning Subjective Constitutional: Denies: fever Allergies: Coded Allergies: ACETAMINOPHEN (Verified Adverse Reaction, Severe, 11/29/16) NAUSEA AND VOMITING HYDROCODONE (Verified Adverse Reaction, Severe, 11/29/16) NAUSEA AND VOMITING Subjective surgical pain is better Objective Last 24 Hour Vital Signs Date Time Temp Pulse Resp B/P Pulse Ox O2 Delivery O2 Flow Rate FiO2 12/01/16 16:00 97.7 103 20 127/71 96 Nasal Cannula 3.0 12/01/16 11:54 98.2 92 20 120/67 97 Nasal Cannula 3.0 12/01/16 08:00 97.2 96 19 128/79 96 Nasal Cannula 3.0 12/01/16 04:00 97.5 93 18 134/73 100 Nasal Cannula 2.0 12/01/16 02:02 98.2 91 18 137/75 98 Nasal Cannula 2.0 11/30/16 20:00 98.8 93 18 125/59 97 Room Air Intake and Output 11/30/16 12/01/16 19:00 07:00 Intake Total 1220 ml 120 ml Output Total 1550 ml 400 ml Balance -330 ml -280 ml Intake Oral 1220 ml 120 ml Output Urine Total 1550 ml 400 ml # Voids 3 Height (Feet): 4 Height (Inches): 11.00 Weight (Pounds): 154 General Appearance: no apparent distress Neck: supple Cardiovascular: tachycardia Respiratory/Chest: lungs clear EDER PONCE Dec 01, 2016 16:55
[2016-12-01] MEDS ORDERED: Tubing IV Secondary IV ONE (18:11)
[2016-12-01 20:03] VITALS: BP 129/76
[2016-12-02 00:07] VITALS: BP 130/67
[2016-12-02] MEDS: oxyCODONE 5mg IR tab ORAL PRN ×3 (01:50→11:17)
[2016-12-02 04:00] VITALS: BP 116/67
[2016-12-02 08:00] VITALS: BP 108/62
[2016-12-02] MEDS: celeBREX 200mg Cap **SURGERY PATIENTS ONLY ORAL SCH (08:20)
[2016-12-02] MEDS: Docusate 100mg cap ORAL SCH (08:20)
[2016-12-02] MEDS: Enoxaparin 40mg Inj SUBQ SCH (08:21)
--- NOTE | 2016-12-02 08:42 | General Progress Note ---
Assessment/Plan Assessment/Plan 1. Postoperative status for L total knee arthroplasty. 2. Osteoarthritis, s/p R TKA 3. Hyperlipidemia. 4. Degenerative disk disease. 5. History of gastric ulcer doing well stable for dc Subjective Constitutional: Denies: fever Allergies: Coded Allergies: ACETAMINOPHEN (Verified Adverse Reaction, Severe, 11/29/16) NAUSEA AND VOMITING HYDROCODONE (Verified Adverse Reaction, Severe, 11/29/16) NAUSEA AND VOMITING Subjective surgical pain is better Objective Last 24 Hour Vital Signs Date Time Temp Pulse Resp B/P Pulse Ox O2 Delivery O2 Flow Rate FiO2 12/02/16 08:00 98.1 95 18 108/62 95 Room Air 12/02/16 04:00 97.3 96 18 116/67 96 Room Air 12/02/16 00:07 98.4 104 17 130/67 95 Room Air 12/01/16 20:03 98.1 111 18 129/76 95 Room Air 12/01/16 16:00 97.7 103 20 127/71 96 Nasal Cannula 3.0 12/01/16 11:54 98.2 92 20 120/67 97 Nasal Cannula 3.0 Intake and Output 12/01/16 12/02/16 19:00 07:00 Intake Total 480 ml 240 ml Output Total 1350 ml Balance -870 ml 240 ml Intake Oral 480 ml 240 ml Output Urine Total 1050 ml Stool Total 300 ml # Voids 1 2 # Bowel Movements 1 Height (Feet): 4 Height (Inches): 11.00 Weight (Pounds): 154 General Appearance: no apparent distress Cardiovascular: normal rate Respiratory/Chest: lungs clear Edema: no edema noted EDER Davila Dec 02, 2016 08:42
[2016-12-02 12:00] VITALS: BP 125/76
[2016-12-05] MEDS ORDERED: LOVENOX10 M4 SUBQ (10:07)
--- NOTE | 2016-12-05 10:14 | Discharge Summary ---
Discharge Summary Hospital Course Date of Admission Nov 29, 2016 at 06:04 Date of Discharge Dec 02, 2016 at 13:35 Admitting Diagnosis acute OA Left knee Reason for Hospitalization: elective surgery HPI Alexia Harrison is a 66 year old female who was admitted on Nov 29, 2016 at 06 :04 for severe Lt Knee Osteoarthritis all conservative measurers failed and augusto was admitted for elective surgery Consultations dr Bolden- IM/pulmo/critical care Procedures 11/29 Left total knee arthroplasty dr Kilgore [facility] Course s/p elective surgery course of recovery uneventful pain management neurovascular status closely monitored, intact incision C/D/I PT eval and Rx DVT prophylaxis with Lovenox bowel regimen tolerated diet voided freely stable for dc to SNF for PT/OT FINAL DIAGNOSIS severe left knee OA s/p 11/29 Left total knee arthroplasty hx of R TKA DDD Hx of gastric ulcer hyperlipidemia Discharge Medications New Medications: Enoxaparin* (Lovenox*) 40 Mg/0.4 Ml Inj 40 MG SUBQ DAILY, #10 SYR Continued Medications: Omeprazole (Omeprazole) 20 Mg Capsule. 20 MG ORAL DAILY, CAP [Tylenol] () 500 MG PO Discharge Condition Upon Discharge: stable Discharge Disposition Patient was discharged to SNF/Subacute Facility(03) Discharge Diagnoses: Discharge Instructions Discharge Instructions Special Instructions I have been assigned to complete a D/C Summary on this account. I was not involved in the patient management Marialuisa Nieves NP ([facility]) Dec 05, 2016 10:14
== END 2016-12-02 13:35 | disposition short-term general hospital (02) | DRG 470 ==
LOC: SDSOVERFLO 06:04 → 3E 11:37
PROC: 0SRD0J9 Replacement of Left Knee Joint with Synthetic Substitute, Cemented, Open Approach (ICD-10-PCS; principal; 2016-11-29 07:30)
DX: M17.12 Unilateral primary osteoarthritis, left knee (principal); E78.5 Hyperlipidemia, unspecified; K21.9 Gastro-esophageal reflux disease without esophagitis; E66.9 Obesity, unspecified; Z68.31 Body mass index [BMI] 31.0-31.9, adult; Z96.651 Presence of right artificial knee joint
CPT/HCPCS: 36415; 85025; 86850; 86900; 86901; 87081; 94003; 94150; J2250; J2405